=== PATIENT | female | born 1950 | race Caucasian/White ===

== ENCOUNTER 2022-01-14 11:41 | Outpatient (REF) | payer MEDICARE, BC, SELFPAY ==
[2022-01-14 12:37] LABS: Appearance Urine Cloudy (Clear); Bilirubin Urine Negative (Negative); Blood Urine Negative (Negative); Color Urine Yellow (Yellow); Glucose Urine Negative (Negative); Ketones Urine Negative (Negative); Leukocyte Esterase Urine Negative (Negative); Nitrite Urine Negative (Negative); Protein Urine Negative (Negative); Specific Gravity Urine >= 1.030 (1.000-1.030); Urobilinogen Urine 0.2 (0.2-1.0); pH Urine 5.5 (5.0-8.5)
[2022-01-14 13:12] LABS: RBC Urine 0-2 (0-2); Squamous Epithelial Cell Urine Few (None-Few); WBC Urine 0-2 (0-5)
[2022-01-14 13:13] LABS: Other Sediment Urine Many
== END 2022-01-14 11:42 | disposition home or self-care (01) ==
LOC: NPINS 11:41
PROVIDERS: PCP Internal Medicine
DX: N32.81 Overactive bladder (principal); R82.90 Unspecified abnormal findings in urine
CPT/HCPCS: 81003; 81015; 87086

== ENCOUNTER 2022-03-06 08:02 | Outpatient (CLI) | payer MEDICARE, BC, SELFPAY ==
[2022-03-06 10:43] LABS: Chloride* 104 mmol/L (96-114); Sodium* 134 mmol/L (135-149)
[2022-03-06 10:44] LABS: Potassium* 4.4 mmol/L (3.6-5.1)
[2022-03-06 10:46] LABS: Carbon Dioxide* 22 mmol/L (20-32); Estimated Glomerular Filt Rate 60 ml/min
[2022-03-06 10:47] LABS: Blood Urea Nitrogen* 18 mg/dL (7-30)
[2022-03-06 10:51] LABS: Glucose* 373 mg/dL (60-115)
== END 2022-03-06 08:03 | disposition home or self-care (01) ==
PROVIDERS: PCP Internal Medicine; Visit Provider Family Medicine
DX: U07.1 COVID-19 (principal)
CPT/HCPCS: 80048

== ENCOUNTER 2022-03-11 10:39 | Outpatient (CLI) | payer MEDICARE, BC, SELFPAY ==
--- NOTE | 2022-03-11 10:45 | CRLHL7_ITS ---
For Patients: As a result of the Century Cures Act, medical imaging exams and procedure reports are released immediately into your electronic medical record. You may view this report before your referring provider. If you have questions, please contact your health care provider. BILATERAL DIGITAL SCREENING MAMMOGRAM WITH COMPUTER-AIDED DETECTION AND TOMOSYNTHESIS CLINICAL HISTORY: Routine screening exam. COMPARISON: 03/11/2021, 02/23/2020, TECHNIQUE: Digital mammogram in CC and MLO projections including computer-aided detection (CAD) and tomosynthesis. BREAST COMPOSITION: There are scattered areas of fibroglandular density FINDINGS: RIGHT Breast: Focal asymmetric density is present within the upper RIGHT breast 8 cm from the nipple. LEFT Breast: No suspicious findings. IMPRESSION: RIGHT breast asymmetry/mass. RECOMMENDATIONS: Additional mammographic views of the RIGHT breast including 3D CC/MLO. RIGHT breast ultrasound may also be required. [facility] will contact the patient for follow-up. BI-RADS Category 0: Incomplete: Need Additional Imaging Evaluation and/or Prior Mammograms for Comparison A lay language report of this examination will be provided to the patient. Dictated by Elian Zimmer MD @ 03/11/2022 12:13:15 PM/maximilian BETANCOURT/Dictated by: Elian Zimmer MD @ 03/11/2022 12:13:00 PM (Electronically Signed)
== END 2022-03-11 10:40 | disposition home or self-care (01) ==
LOC: MAMMO 10:40
PROVIDERS: PCP Internal Medicine; Visit Provider Internal Medicine
DX: Z12.31 Encounter for screening mammogram for malignant neoplasm of breast (principal); N63.10 Unspecified lump in the right breast, unspecified quadrant
CPT/HCPCS: 77063; 77067

== ENCOUNTER 2022-03-19 10:38 | Outpatient (CLI) | payer MEDICARE, BC, SELFPAY ==
--- NOTE | 2022-03-19 10:45 | CRLHL7_ITS ---
For Patients: As a result of the Cures Act, medical imaging exams and procedure reports are released immediately into your electronic medical record. You may view this report before your referring provider. If you have questions, please contact your health care provider. DIGITAL DIAGNOSTIC RIGHT MAMMOGRAM USING TOMOSYNTHESIS AND COMPUTER-AIDED DETECTION RIGHT BREAST ULTRASOUND CLINICAL HISTORY: RIGHT breast mass/asymmetry. COMPARISON: 03/11/2022. TECHNIQUE: Digital RIGHT mammogram in two projections. Tomosynthesis and CAD utilized. Real-time ultrasound imaging of RIGHT breast with imaging documentation. Scanning was performed by both the technologist and the radiologist. BREAST COMPOSITION: There are areas of scattered fibroglandular density. FINDINGS: 3D CC and 3D MLO mammogram images submitted. Persistent subtle nodular density located within the upper RIGHT breast without architectural distortion. Targeted RIGHT breast ultrasound performed at 12 o`clock 7 cm from the nipple. In this location there is a subtle hypoechoic lesion at mid depth measuring 5 x 4 x 4 millimeters. IMPRESSION: Subtle indeterminate hypoechoic lesion RIGHT breast 12 o`clock 7 cm from the nipple measuring 5 millimeters. RECOMMENDATIONS: Ultrasound-guided core needle biopsy. Results and recommendations discussed with patient. BI-RADS Category 4: Suspicious A lay language report of this examination will be provided to the patient. Dictated by Elian Zimmer MD @ 03/19/2022 12:49:53 PM /Dictated by: Elian Zimmer MD @ 03/19/2022 12:49:00 PM (Electronically Signed)
--- NOTE | 2022-03-19 11:15 | CRLHL7_ITS ---
For Patients: As a result of the Cures Act, medical imaging exams and procedure reports are released immediately into your electronic medical record. You may view this report before your referring provider. If you have questions, please contact your health care provider. PLEASE SEE DIGITAL DIAGNOSTIC RIGHT MAMMOGRAM PERFORMED SAME DAY CRL:adán mccain/Dictated by: Elian Zimmer MD @ 03/19/2022 12:49:00 PM (Electronically Signed)
== END 2022-03-19 10:39 | disposition home or self-care (01) ==
LOC: MAMMO 10:40
PROVIDERS: PCP Internal Medicine; Visit Provider Internal Medicine
DX: N63.10 Unspecified lump in the right breast, unspecified quadrant (principal); R92.8 Other abnormal and inconclusive findings on diagnostic imaging of breast
CPT/HCPCS: 76642; 77065; G0279

== ENCOUNTER 2022-03-20 11:14 | Outpatient (CLI) | payer MEDICARE, BC, SELFPAY ==
[2022-03-20 11:13] LABS: Albumin* 3.9 g/dL (3.3-5.0); Chloride* 106 mmol/L (96-114); Sodium* 136 mmol/L (135-149)
[2022-03-20 11:14] LABS: Potassium* 4.7 mmol/L (3.6-5.1)
[2022-03-20 11:15] LABS: Cholesterol* 154 mg/dL (90-199)
[2022-03-20 11:16] LABS: Alanine Aminotransferase* 12 U/L (4-35); Alkaline Phosphatase* 74 U/L (40-150); Aspartate Amino Transferase* 17 U/L (12-35); Bilirubin Total* 0.9 mg/dL (0.1-1.5); Blood Urea Nitrogen* 20 mg/dL (7-30); Carbon Dioxide* 23 mmol/L (20-32); Creatinine* 1.1 mg/dL (0.5-1.5); Estimated Glomerular Filt Rate 54 ml/min; Glucose* 217 mg/dL (60-115); Total Protein* 6.4 g/dL (6.0-8.3); Triglycerides* 160 mg/dL (40-149)
[2022-03-20 11:17] LABS: Calcium* 9.7 mg/dL (8.4-10.6); HDL Cholesterol* 50 mg/dL (>=50); LDL Cholesterol Calculated 72 mg/dL (<100)
[2022-03-20 18:04] LABS: Microalbumin Creatinine Ratio 10 mg/g (0-30); Microalbumin Urine 4 mg/dL
== END 2022-03-20 11:15 | disposition home or self-care (01) ==
PROVIDERS: PCP Internal Medicine; Visit Provider Internal Medicine
DX: E11.9 Type 2 diabetes mellitus without complications (principal)
CPT/HCPCS: 80053; 80061; 82043; 82570

== ENCOUNTER 2022-03-24 10:09 | Outpatient (CLI) | payer MEDICARE, BC, SELFPAY ==
--- NOTE | 2022-03-24 10:15 | CRLHL7_ITS ---
For Patients: As a result of the Century Cures Act, medical imaging exams and procedure reports are released immediately into your electronic medical record. You may view this report before your referring provider. If you have questions, please contact your health care provider. ULTRASOUND-GUIDED BREAST BIOPSY AND POST-BIOPSY DIGITAL MAMMOGRAM FOR BIOPSY MARKER PLACEMENT CLINICAL HISTORY: RIGHT breast mass. COMPARISON STUDIES: 03/19/2022. TECHNIQUE: Real-time ultrasound with image documentation was used for targeting the breast lesion. Core biopsy specimens were obtained using an automated gun with an 18-gauge biopsy needle. Post-biopsy CC and ML digital mammograms were obtained to document position of the biopsy marker. CONSENT and TIME OUT: The procedure, risks, and alternatives were explained to the patient and a consent was signed. Merkel Protocol was followed including pre-procedure verification that relevant information/documentation was available, reviewed and properly matched to the patient; consent accurate and complete; and equipment and supplies available. Time Out was conducted just prior to starting procedure to verify the four required elements: patient identity, correct side/site marked (if applicable), procedure, relevant images/results properly labeled and displayed (if applicable). PROCEDURE: The patient was positioned supine on the ultrasound table. The breast was prepped with ChloraPrep. 5 cc of 1 percent lidocaine was injected for local anesthesia. Core samples were obtained. A sterile metal biopsy clip was placed percutaneously to baldev the lesion position within the breast. The specimens were placed in 10% formalin and sent to the pathology department. Pressure was held on the biopsy site until all bleeding subsided. The skin incision was closed with Steri-Strips. An ice pack was positioned over the biopsy site. Post-biopsy instructions were reviewed with the patient, and a written copy was given to her. LATERALITY: RIGHT breast. LESION: Hypoechoic solid nodule at mid depth measuring 4 millimeters at 12 o`clock 7 cm from the nipple. SUSPICION FOR MALIGNANCY: Medium. NUMBER OF SAMPLES: 5. BIOPSY CLIP SHAPE: Oval. PROXIMITY OF CLIP TO TARGET: Within or adjacent to the lesion. Small post biopsy hematoma developed. IMPRESSION: Ultrasound-guided breast biopsy. When the pathology report is available, an addendum to this report will be made. ACR not applicable Dictated by Elian Zimmer MD @ 03/24/2022 11:50:02 AM jj/Dictated by: Elian Zimmer MD @ 03/24/2022 11:50:00 AM ----ADDENDUM---- Pathology consistent with radial scar/complex sclerosing lesion. No evidence of atypia or malignancy. This is concordant. Routine annual BILATERAL screening mammography recommended. Dictated by: Elian Zimmer MD @03/26/2022 11:42:50 AM Signed by:?Elian Zimmer MD @03/26/2022 1:20:54 PM (Electronically Signed)
--- NOTE | 2022-03-24 11:00 | CRLHL7_ITS ---
For Patients: As a result of the Century Cures Act, medical imaging exams and procedure reports are released immediately into your electronic medical record. You may view this report before your referring provider. If you have questions, please contact your health care provider. PLEASE SEE ULTRASOUND-GUIDED RIGHT BREAST BIOPSY PERFORMED SAME DAY CRL:adán mccain/Dictated by: Elian Zimmer MD @ 03/24/2022 11:50:00 AM (Electronically Signed)
== END 2022-03-24 10:10 | disposition home or self-care (01) ==
LOC: US 10:10
PROVIDERS: PCP Internal Medicine; Visit Provider Internal Medicine
DX: N63.10 Unspecified lump in the right breast, unspecified quadrant (principal); R92.8 Other abnormal and inconclusive findings on diagnostic imaging of breast
CPT/HCPCS: 19083; 77065; 88305; A4648; A4649

== ENCOUNTER 2022-04-21 07:30 | Outpatient (RCR) | payer MEDICARE, BC, SELFPAY ==
--- NOTE | 2022-01-20 07:06 | PT.OPEX ---
PT [place] Outpatient Eval PT [facility] Outpatient Eval Start: 01/19/22 10:51 Freq: Status: Active Protocol: Document 01/19/22 10:51 ARR (Rec: 01/19/22 11:42 ARR [id number]) E-signed By Zuly Hugo DPT Physical Therapy Outpatient Evaluation Insurance Information Recert Due Date 04/19/22 Insurance Name Medicare B Medical Diagnosis M25.551 right hip pain Treating Diagnosis M25.551 right hip pain M62.551 right thigh weakness R26.2 difficulty walking Referring MD Flor Solorzano MD ([facility]) Subjective Subjective Comes to PT with R hip pain since Summer 2021. Walking too far it increases, distance to [address] increases pain and most stop and rest. Standing too long can increase pain, can stand no longer than 20 min before sitting and resting . Pain can increase to 8/10. Described as an ache. -Decreases in pain: sometimes movement helps. Sitting down. -Location of pain R posterior- lateral hip just behind greater trochanter. PMHx: ovarian CA 1982 with hysterectomy, BPPV, DM type 2, TKA bilateral, gallbladder Objective Other/Pertinent Objective Posture: level IC, inc'd foot pronation bilat, inc'd foot/ hip ER bilat, inc'd TS kyhposis Palpation: TTP lateral hip over greater trochanter, and just posterior to greater trochanter, and proximal ITB on R. SLS (30 sec): Unable on the R with inc'd pelvic drop and genu valgus. Able to maintain 5 sec on L with same deviations Gait: mild antalgic gait with decreased weight bearing on R LE RANGE OF MOTION: Lumbar ROM: -Flx: -Ext: -R Rot: -L Rot: -R Sidebend: -L Sidebend: LE ROM (R/L): -Hip ER90: 90 L / 80 R -Hip IR90: 40 L/R -Hip flex: limited on R STRENGTH: LE Strength (R/L) -GLut medius: 2+ on R SPECIAL TESTS: LE Flexibility (R/L) -Hamstring: + bilat -Piriformis: neg bilat -Prone knee bend: tested in sidelying pos on R - Raffy?s Test + on R Hip (R/L): -SHILA: neg bilat -Hip Scour: neg bilat -FADIR: neg bilat -Jace?s Test: neg bilat Assessment Assessment/Impression Pt is a 71 y/o female who presents with concerns of right hip pain. Signs and symptoms likely indicating / consistent with trochanteric bursitis with reproduction of pain with palpation of greater trochanter and just posterior to greater trochanter over trochanteric bursa. Patient also has notable objective findings including glut weakness, inability to complete SLS on right side due to hip weakness causing genu valgus and further hip strain, and ITB tightness also likely contributing to the problem. Patient is a good candidate for skilled therapy to target deficits described above. Skilled PT intervention is necessary for use of therapeutic exercise manual therapy, neuromuscular re- education, gait training, and therapeutic activity. Functional impairments include difficulty with: walking and standing. See appropriate sections of PT eval for complete list of goals and POC . D/C plan and criteria is for pt to achieve the goals as listed below or until max rehab potential is met. Pt was agreeable with plan of care and goals established. Plan of Care Physical Therapy Goals STG (within 6 visits) 1) Pt will initiate HEP without increased pain/ symptoms 2) Pt will demonstrate ability to isometrically activate TA and gluts with minimal compensations in order to improve lumbopelvic stability 3) Pt will demonstrate ability to maintain SLS > 5 sec on right side to improve pelvic alignment LTG (within 12 visits) 1) Pt will be indep with HEP for long-term management of pain/symptoms 2) Pt will report at least 70% improvement in pain/symptoms since start of PT for return to PLOF 3) Pt will report ability to walk to [address] with pain not exceeding 3/10 for improved community ambulation/mobility 4) Pt will demonstrate ability to maintain SLS > 15 sec with moderate pelvic drop and no pain to improve LE alignment to hip knee strain during ambulation on uneven terrain 5) Pt will be able to activate gluts during dynamic LE movements without flare of pain for improved dynamic pelvic stability Treatment Plan/Direct Interventions Electrical Stimulation,Gait Training,Joint Mobilization, Manual Therapy,Neuromuscular Re-ed,Self-Care/Home Management,Therapeutic Activities,Therapeutic Exercises Patient Will Be Discharged From Therapy Skills [facility],Independent w/ HEP Evaluation Billing Untimed Code Treatment Minutes 20 Complexity Moderate Certification Information Initial Certification Date 01/19/22 Ending Certification Date 04/19/22 Provider Signature Shows Agreement With POC & Medical Necessity Physician Signature & Date Requested Please Sign/Date Here Physician Comment/Change : Physician NPI Number #
--- NOTE | 2022-04-14 10:45 | PT.OPDNX ---
PT [place] Outpatient Daily Note PT [facility] Outpatient Daily Note Start: 01/19/22 11:42 Freq: Status: Active Protocol: Document 04/14/22 08:31 ARR (Rec: 04/14/22 09:09 ARR [id number]) E-signed By Zuly Hugo DPT PT OP Daily Progress Note Visit Information Note Type Daily Note Visit Number 8 Insurance Information Recert Due Date 04/19/22 Insurance Name Medicare B Insurance Information/Comments POC 01/19/23-04/14/22 POC 04/15/22 - 06/13/22 Medical Diagnosis M25.551 right hip pain Treating Diagnosis M25.551 right hip pain M62.551 right thigh weakness R26.2 difficulty walking Referring MD Flor Solorzano MD ([facility]) Subjective Subjective -Symptoms seem to be getting better. -Back didn't get sore after last session -Returned to [facility] Home Exercise Home Exercise Comments Access Code: [email or web address] URL: [email or web address] Date: 02/16/2022 Prepared by: Zuly Hugo Program Notes - Rolling pin every other day 3-5 min Exercises Supine Piriformis Stretch with Foot on Ground - 2 x daily - 5-7 x weekly - 2-3 reps - 20- 30 sec hold Supine Hip Internal and External Rotation - 2 x daily - 5-7 x weekly - 6-8 reps Supine Piriformis Stretch - 2 x daily - 5-7 x weekly - 3 sets - 2-3 reps - 20-30 sec hold Hooklying Clamshell with Resistance - 1 x daily - 4-5 x weekly - 2 sets - 12-15 reps Supine Gluteal Sets - 1 x daily - 4-5 x weekly - 20 reps - 5 sec hold Objective Other/Pertinent Objective Posture: level IC, inc'd foot pronation bilat, inc'd foot/ hip ER bilat, inc'd TS kyhposis Palpation: TTP lateral hip over greater trochanter, and just posterior to greater trochanter, and proximal ITB on R. SLS (30 sec): Unable on the R with inc'd pelvic drop and genu valgus. Able to maintain 5 sec on L with same deviations Gait: mild antalgic gait with decreased weight bearing on R LE RANGE OF MOTION: Lumbar ROM: -Flx: -Ext: -R Rot: -L Rot: -R Sidebend: -L Sidebend: LE ROM (R/L): -Hip ER90: 90 L / 80 R -Hip IR90: 40 L/R -Hip flex: limited on R STRENGTH: LE Strength (R/L) -GLut medius: 2+ on R SPECIAL TESTS: LE Flexibility (R/L) -Hamstring: + bilat -Piriformis: neg bilat -Prone knee bend: tested in sidelying pos on R - Raffy?s Test + on R Hip (R/L): -SHILA: neg bilat -Hip Scour: neg bilat -FADIR: neg bilat -Mccormick?s Test: neg bilat Patient Instructed in Risks/Benefits Yes Therapeutic Exercise Therapeutic Exercise Minutes (minutes) 13 Therapeutic Exercise: To Restore Therapeutic Exercise: Functional Status Indicated for improvement in strengthening and mobility. -Handouts with written instructions and photographs of exercises were issued to the patient for exercises to be included in HEP. Answered patient questions regarding POC, and mobility/stretches to perform if pain occurs -Subjective gathering as above . -Prone Hip ext 2x 6 reps ea side -Prone knees apart heel press 12 x 5 holds -Prone hip ext w/knee bent 90* x 6 reps R LE -Bridges 10 x 2-3 holds Manual Therapy Techniques Manual Therapy Minutes (minutes) 15 Manual Therapy Techniques MT: indicated for improving joint mobility, reducing tissue irritability, and improving range of motion. Prone: -CPA L4-5 for 4 x 30 sec G3 -KEVIN CPA L4-5 and S1 for 2 x 30 sec G3 Treatment Minutes Timed Code Treatment Minutes 28 Total Treatment Time 28 Billing Units Manual Therapy Units 1 Therapeutic Exercise Units 1 Assessment/Impression Assessment/Impression Pt had been seen for R hip pain, R thigh weakness, and difficulty walking for 8visits from 01/19/22 to 04/14/2022 during this episode of physical therapy. Focus of therapy on hip ROM, glut strengthening, pain management , and spinal ROM. Interventions including therapeutic exercise, manual therapy, neuromuscular re- education. Pt has been making slow but steady progress during this plan of care. Having hip injection significantly reduced pain and also recent approach for targeting lumbar spine segmental mobility. Pt at this time has not met all short/half-way goals and continues to require cues for exercises in HEP. Would benefit from extension of current plan of care with goals as indicated below. Continued focus of therapy on progressing glut/core strength and improving lumbar spine ROM. 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 2) Pt will report at least 70% improvement in pain/symptoms since start of PT for return to PLOF 3) Pt will report ability to walk to [address] with pain not exceeding 3/10 for improved community ambulation/mobility 4) Pt will demonstrate ability to maintain SLS > 15 sec with moderate pelvic drop and no pain to improve LE alignment to hip knee strain during ambulation on uneven terrain 5) Pt will be able to activate gluts during dynamic LE movements without flare of pain for improved dynamic pelvic stability Daily Plan of Care Continue per POC Daily Plan of Care Comments -Glut and core strengthening ( hip ext, GS, bridges, hip adduction, clam). Standing strengthening - squats, heel raises, lateral stepping. -Changes after LS intervention vs no difference Recertification Information Initial Certification Date 01/19/22 Recertification Start Date 04/14/22 Recertification Due Date 06/13/22 Reasons to Continue Skilled Therapy Pt had been seen for R hip pain, R thigh weakness, and difficulty walking for 8visits from 01/19/22 to 04/14/2022 during this episode of physical therapy. Focus of therapy on hip ROM, glut strengthening, pain management , and spinal ROM. Interventions including therapeutic exercise, manual therapy, neuromuscular re- education. Pt has been making slow but steady progress during this plan of care. Having hip injection significantly reduced pain and also recent approach for targeting lumbar spine segmental mobility. 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 Would benefit from extension of current plan of care with goals as indicated below. Continued focus of therapy on progressing glut/core strength and improving lumbar spine ROM. Skilled PT continues to be indicated for pain mgmt, progression of mobility and strength for return to PLOF including walking and standing Rehabilitation Potential Good Continued Plan of Care and Interventions Continue per current plan of care at a frequency of 1x/wk x 4 visits within 60 days Provider Signature Shows Agreement With POC & Medical Necessity
== END 2022-05-25 12:15 | disposition home or self-care (01) ==
PROVIDERS: PCP Internal Medicine; Visit Provider Internal Medicine
DX: M25.551 Pain in right hip (principal); Z51.89 Encounter for other specified aftercare
CPT/HCPCS: 97110; 97140; 97162

== ENCOUNTER 2022-11-06 11:15 | Outpatient (CLI) | payer MEDICARE, BC, SELFPAY ==
--- NOTE | 2022-11-06 12:34 | W.ANESCHARGE ---
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
== END 2022-11-06 11:16 | disposition home or self-care (01) ==
LOC: OP CLINIC 11:16
PROVIDERS: PCP Internal Medicine; Visit Provider Internal Medicine
DX: Z12.11 Encounter for screening for malignant neoplasm of colon (principal); K64.4 Residual hemorrhoidal skin tags; K57.30 Diverticulosis of large intestine without perforation or abscess without bleeding; Z86.010 Personal history of colon polyps
CPT/HCPCS: 00812; 45378; 99100; J2704

== ENCOUNTER 2023-03-24 14:27 | Outpatient (CLI) | payer MEDICARE, BC, SELFPAY ==
--- OUTSIDE RECORDS SUMMARY | 2023-03-24 14:30 | XMS_ITS | Data Portability ---
Author Name Unknown Address [address] [place] [address] Phone [phone] Organization [facility], [facility] Address [address] [place] [address] Care Team Providers Care Wharf Operator Name Role Phone NUNO BROCK Primary Care Provider Assessment No assessment recorded. Plan of Treatment Reminders Order Date Submit Date Provider Last Modified By Organization Details Last Modified Time Details Appointments None recorded. Lab urinalysi s, dipstick 2022 023 [email or web address] [facility], [address], [place], [address], 3 13:29:56 urinalysi s, dipstick 2022 023 [email or web address] [facility], [address], [place], [address], 3 12:51:46 culture, urine 2022 023 [facility], [address], [address], [place], [address], 3 12:39:36 urinalysi s, dipstick 2021 022 [email or web address] [facility], [address], [place], [address], 2 13:58:26 urinalysi s, dipstick 2021 022 [email or web address] [facility], [address], [place], [address], 14:45:40 Referral None recorded. Procedures None recorded. Surgeries None recorded. Imaging None recorded. Medication Orders Botox 100 unit injection 2022 023 [email or web address] [id number], [address] [place] [address], [address], 13:29:05 Botox 100 unit injection 2021 022 [email or web address] [id number], [address] [place] [address], [address], 13:52:02 Patient TargetsNo targets recorded. Patient Instructions Encounter Date Encounter Id Patient Instructions Last Modified By Organization Details Last Modified Time 01/28/2022 [id number] Follow up in a month post botox [email or web address] Not available 01/28/2022 14:06:12 Reason for Referral None Reported. Results Created Date Observation Date Name Description Value Unit Range Abnormal Flag LastModifiedBy Organization Detail LastModifiedTime 12/24/1912/23/2021 urina lysis , dipst ick Color-Status Yellow Not Available [facility] [address], [place], [address], 12/23/2021 14:44:58 12/24/1912/23/2021 urina lysis , dipst ick Clarity-Stat us Clear Not Available [facility] [address], [place], [address], 12/23/2021 14:44:58 12/24/1912/23/2021 urina lysis , dipst ick Glucose-Stat us 500 Not Available [facility] [address], [place], [address], 12/23/2021 14:44:58 12/24/1912/23/2021 urina lysis , dipst ick Bilirubin-St atus Negati ve Not Available [facility] [address], [place], [address], 12/23/2021 14:44:58 12/24/19 22 12/23/2021 urina lysis , dipst ick Ketones-Stat us Negati ve Not Available [facility] [address], [place], [address], 12/23/2021 14:44:58 12/24/1912/23/2021 urina lysis , dipst ick Sp Amigo-Stat us 1.020 Not Available [facility] [address], [place], [address], 12/23/2021 14:44:58 12/24/1912/23/2021 urina lysis , dipst ick pH-Status 5.5 Not Available [facility] [address], [place], [address], 12/23/2021 14:44:58 12/24/1912/23/2021 urina lysis , dipst ick Urobilinogen -Status 0.2 Not Available [facility] [address], [place], [address], 12/23/2021 14:44:58 12/24/1912/23/2021 urina lysis , dipst ick Nitrates-Sta tus negati ve Not Available [facility] [address], [place], [address], 12/23/2021 14:44:58 12/24/1912/23/2021 urina lysis , dipst ick Blood-Status Negati ve Not Available [facility] [address], [place], [address], 12/23/2021 14:44:58 12/24/19 22 12/23/2021 urina lysis , dipst ick Leuko-Status Negati ve Not Available [facility] [address], [place], [address], 12/23/2021 14:44:58 12/24/19 22 12/23/2021 urina lysis , dipst ick Specimen Type Voided Not Available [facility] [address], [place], [address], 12/23/2021 14:44:58 12/24/1912/23/2021 urina lysis , dipst ick Performed by Renee De Leon RN Not Available [facility] [address], [place], [address], 12/23/2021 14:44:58 12/24/19 22 12/23/2021 urina lysis , dipst ick Total Urine Volume 20cc Not Available [facility] [address], [place], [address], 12/23/2021 14:44:58 01/21/20 22 01/20/2022 urina lysis , dipst ick Color-Status Yellow Not Available [facility] [address], [place], [address], 01/20/2022 13:57:26 01/21/20 22 01/20/2022 urina lysis , dipst ick Clarity-Stat us Clear Not Available [facility] [address], [place], [address], 01/20/2022 13:57:26 01/21/20 22 01/20/2022 urina lysis , dipst ick Glucose-Stat us 500 Not Available [facility] [address], [place], [address], 01/20/2022 13:57:26 01/21/20 22 01/20/2022 urina lysis , dipst ick Bilirubin-St atus Negati ve Not Available [facility] [address], [place], [address], 01/20/2022 13:57:26 01/21/20 22 01/20/2022 urina lysis , dipst ick Ketones-Stat us 5 Not Available [facility] [address], [place], [address], 01/20/2022 13:57:26 01/21/20 22 01/20/2022 urina lysis , dipst ick Sp Amigo-Stat us >=1.03 0 Not Available [facility] [address], [place], [address], 01/20/2022 13:57:26 01/21/20 22 01/20/2022 urina lysis , dipst ick pH-Status 5.5 Not Available [facility] [address], [place], [address], 01/20/2022 13:57:26 01/21/20 22 01/20/2022 urina lysis , dipst ick Urobilinogen -Status 0.2 Not Available [facility] [address], [place], [address], 01/20/2022 13:57:26 01/21/20 22 01/20/2022 urina lysis , dipst ick Nitrates-Sta tus negati ve Not Available [facility] [address], [place], [address], 01/20/2022 13:57:26 01/21/20 22 01/20/2022 urina lysis , dipst ick Blood-Status Negati ve Not Available [facility] [address], [place], [address], 01/20/2022 13:57:26 01/21/20 22 01/20/2022 urina lysis , dipst ick Leuko-Status Negati ve Not Available [facility] [address], [place], [address], 01/20/2022 13:57:26 01/21/20 22 01/20/2022 urina lysis , dipst ick Specimen Type Cathet erized Not Available [facility] [address], [place], [address], 01/20/2022 13:57:26 01/21/20 22 01/20/2022 urina lysis , dipst ick Performed by Renee De Leon RN Not Available [facility] [address], [place], [address], 01/20/2022 13:57:26 01/21/20 22 01/20/2022 urina lysis , dipst ick Total Urine Volume 20cc Not Available [facility] [address], [place], [address], 01/20/2022 13:57:26 12/02/19 23 12/01/2022 URINE CULTU RE final report microb iology result s Not Available [facility] [address], [place], [address], 12/03/2022 12:39:36 12/02/1912/01/2022 urina lysis , dipst ick Nitrates-Sta tus negati ve Not Available [facility] [address], [place], [address], 12/01/2022 12:49:52 12/02/19 23 12/01/2022 urina lysis , dipst ick Blood-Status Negati ve Not Available [facility] [address], [place], [address], 12/01/2022 12:49:52 12/02/1912/01/2022 urina lysis , dipst ick Leuko-Status Negati ve Not Available [facility] [address], [place], [address], 12/01/2022 12:49:52 12/02/19 23 12/01/2022 urina lysis , dipst ick Specimen Type Voided Not Available [facility] [address], [place], [address], 12/01/2022 12:49:52 12/09/1912/08/2022 urina lysis , dipst ick Color-Status Yellow Not Available [facility] [address], [place], [address], 12/08/2022 13:29:13 12/09/19 23 12/08/2022 urina lysis , dipst ick Clarity-Stat us Clear Not Available [facility] [address], [place], [address], 12/08/2022 13:29:13 12/09/19 23 12/08/2022 urina lysis , dipst ick Glucose-Stat us 500 Not Available [facility] [address], [place], [address], 12/08/2022 13:29:13 12/09/19 23 12/08/2022 urina lysis , dipst ick Bilirubin-St atus Negati ve Not Available [facility] [address], [place], [address], 12/08/2022 13:29:13 12/09/19 23 12/08/2022 urina lysis , dipst ick Ketones-Stat us 5 Not Available [facility] [address], [place], [address], 12/08/2022 13:29:13 12/09/19 23 12/08/2022 urina lysis , dipst ick Sp Amigo-Stat us >=1.03 0 Not Available [facility] [address], [place], [address], 12/08/2022 13:29:13 12/09/19 23 12/08/2022 urina lysis , dipst ick Protein-Stat us >=9.0 Not Available [facility] [address], [place], [address], 12/08/2022 13:29:13 12/09/19 23 12/08/2022 urina lysis , dipst ick Nitrates-Sta tus negati ve Not Available [facility] [address], [place], [address], 12/08/2022 13:29:13 12/09/19 23 12/08/2022 urina lysis , dipst ick Blood-Status Negati ve Not Available [facility] [address], [place], [address], 12/08/2022 13:29:13 12/09/19 23 12/08/2022 urina lysis , dipst ick Leuko-Status Negati ve Not Available [facility] [address], [place], [address], 12/08/2022 13:29:13 12/09/19 23 12/08/2022 urina lysis , dipst ick Specimen Type Voided Not Available [facility] [address], [place], [address], 12/08/2022 13:29:13 12/25/19 22 12/23/2021 bladd er scan (PROC ) No observ ation record ed. BARCODE Not Available 12/24/2021 16:45:09 12/26/1912/23/2021 bladd er scan (PROC ) No observ ation record ed. BARCODE Not Available 12/25/2021 09:23:29 01/29/20 22 01/28/2022 bladd er scan (PROC ) No observ ation record ed. [email or web address] Not Available 14:49:34 03/23/19 23 03/23/2022 bladd er scan (PROC ) No observ ation record ed. BARCODE Not Available 03/23/2022 17:29:31 Result Notes None recorded. Problems Name Status Onset Date Resolution Date Notes Provider Name and Address Organization Details Recorded Time Overactive bladder Active 12/24/19 [facility] 12/23/2021 14:43:19 Problem Notes None recorded. Procedures Surgical History Date Name Laterality Status Provider Name and Address Organization Details Recorded Time 023 Cystoscopy with Botox Injections completed Radha To MD [address] [place] [address],[address], [place], [address], [facility] 12/08/2022 13:46:35 023 Urine Culture completed Jennifer dietz [facility] 12/01/2022 12:49:45 023 [facility] 12:49:40 023 Bladder Scan completed Zamzam dietz, [facility] 03/23/2022 14:38:07 022 Bladder Scan completed Meghan dietz, [facility] 01/28/2022 14:05:34 022 Cystoscopy with Botox Injections completed Radha To MD [address] [place] [address],[address], [place], [address], [facility] 01/20/2022 14:20:11 022 CystoscopyFemale completed Radha To MD [address] [place] [address],[address], [address], [facility] 12/23/2021 15:10:01 022 Bl[facility] 12/23/2021 14:44:55 biopsy of ovary completed Renee Rincon aguilar dietz [facility] 12/23/2021 14:46:29 Orthopedic Surgery completed Renee De Leon mirela [facility] 12/23/2021 14:46:36 Imaging Results Imaging Date Name Status LastModified by Organiz ation Details LastModified Time 12/23/2021 bladder scan (PROC) completed BARCODE Information not available 12/24/2021 16:45:09 12/23/2021 bladder scan (PROC) completed BARCODE Information not available 12/25/2021 09:23:29 01/28/2022 bladder scan (PROC) completed [email or web address] Information not available 03/23/2022 14:49:34 03/23/2022 bladder scan (PROC) completed BARCODE Information not available 03/23/2022 17:29:31 Procedure Notes None recorded. Medical Equipment None Reported. Allergies No known drug allergies Medications Name Sig Start Date Stop Date Status Note LastModified by Organization Details LastModified Time losartan 50 mg tablet active Not Available Not Available No t Available celecoxib 200 mg capsule active Not Available Not Available Not Available latanoprost 0.005 % eye drops active Not Available Not Available Not Available ketoconazol e 2 % shampoo WASH AFFECTED AREA ON SCALP AND FACE 2-3X WEEKLY LATHER AND LET SIT FOR SEVERAL MINUTES BEFORE RINSING active Not Available Not Available No t Available oxybutynin chloride ER 10 mg tablet,exte nded release 24 hr TAKE 1 TABLET BY MOUTH DAILY FOR 14 DAYS. 03/23 completed Not Available Not Available Not Available glipizide 10 mg tablet active Not Available Not Available Not Available venlafaxine ER 150 mg capsule,ext ended release 24 hr active Not Available Not Available Not Available amlodipine 5 mg tablet active Not Available Not Available Not Available spironolact one 25 mg tablet active Not Available Not Available Not Available pravastatin 10 mg tablet active Not Available Not Available Not Available metformin 1,000 mg tablet TAKE 1 TABLET BY MOUTH 2 TIMES PER DAY WITH MEALS. active Not Available Not Available No t Available esomeprazol e magnesium 40 mg capsule,del ayed release active Not Available Not Available Not Available clobetasol 0.05 % scalp solution APPLY THIN LAYER TO AFFECTED AREA ON SCALP 1-2X DAILY FOR UP TO 2 WEEKS. TAKE 2 WEEK BREAK. REPEAT NEEDED FOR FLARES. active Not Available Not Available No t Available glipizide 5 mg tablet 12/23 completed Not Available Not Available Not Available Botox 100 unit injection Take 100 units by injection route. 2022 active Not Available Not Available Not Avai lable desmopressi n 0.1 mg tablet 12/23 completed Not Available Not Available Not Available Nexium active Not Available Not Availa ble Not Available GaviLyte-G 236 gram-22.74 gram-6.74 gram-5.86 gram oral solution active Not Available Not Available Not Available Contour Next Test Strips PATIENT TO TEST ONE TIME DAILY active Not Available Not Available No t Available Paxlovid 300 mg (150 mg x 2)-100 mg tablets in a dose pack TAKE TWO 150 MG TABLETS OF NIRMATREL VIR WITH ONE 100 MG TABLET OF RITONAVIR TWICE DAILY FOR 5 DAYS active Not Available Not Available No t Available Vitals Date Recorded Body height Body mass index (BMI) Body weight Provider Name and Address Organization Details Last Updated DateTime 03/23/2022 176.53 cm 32.2 kg/m2 540645.[address] [facility] 03/23/2022 14:38:28 Social History Question Answer Notes LastModified by Organizat ion Details LastModified Time Tobacco Smoking Status Never Smoker Renee De Leon mirela [facility] 12/23/2021 14:46:54 What Is Your Level Of Alcohol Consumption? Occasional [email or web address] Information not available 12/23/2021 What Is Your Level Of Caffeine Consumption? Moderate [email or web address] Information not available 12/23/2021 What Was The Date Of Your Most Recent Tobacco Screening? 12/08/2022 [email or web address] Information not available 12/08/2022 Have You Ever Been Counseled For Unhealthy Alcohol Use? No [email or web address] Information not available 12/08/2022 Do You Use Any Illicit Or Recreational Drugs? No Information not available 03/23/2022 Has Tobacco Cessation Counseling Been Provided? No Information not available 03/23/2022 Do You Or Have You Ever Used Any Other Forms Of Tobacco Or Nicotine? No [email or web address] Information not available 12/23/2021 How Many Days In The Past Year Have You Consumed 4 Or More Drinks? 0 [email or web address] Information no t available 12/08/2022 Sex: Female Functional Status None recorded. Mental Status None recorded. Family History Relationship Description Onset Age of this Age Resolved Age Notes Maternal Aunt Family history of br east cancer Medical History Condition Response Other N High Blood Pressure Y Kidney Stones Y Lung Disease N Depression N GERD/Acid Reflux N Diabetes Y Sexually Transmitted Infection N Bleeding Disorder N Cancer Y High Cholesterol N Heart Disease N Gynecological HistoryNo gynecological history recorded. Obstetrics History GPAL:G 0 P 0 0 0 0 Immunizations Vaccine Type Date Status Provider Name and Address Organization Details Recorded Time zoster recombinant 12/02/2017 completed Monica Al lar null, [facility] 03/01/2023 16:17:32 zoster recombinant 02/22/2018 completed Moniac Al lar null, [facility] 03/01/2023 16:17:32 COVID-19, mRNA, LNP-S, PF, 100 mcg/0.5mL dose or 50 mcg/0.25mL dose 04/07/2020 completed Monica Allar null, [facility] 03/01/2023 16:17:32 COVID-19, mRNA, LNP-S, PF, 100 mcg/0.5mL dose or 50 mcg/0.25mL dose 05/05/2020 completed Monica Allar null, [facility] 03/01/2023 16:17:32 COVID-19, mRNA, LNP-S, PF, 100 mcg/0.5mL dose or 50 mcg/0.25mL dose 06/18/2021 completed Monica Allar null, [facility] 03/01/2023 16:17:32 COVID-19, mRNA, LNP-S, PF, 100 mcg/0.5mL dose or 50 mcg/0.25mL dose 01/10/2021 completed Monica Allar null, [facility] 03/01/2023 16:17:32 COVID-19, mRNA, LNP-S, bivalent, PF, 50 mcg/0.5 mL or 25mcg/0.25 mL dose 12/12/2021 completed Monica Allar null, [facility] 03/01/2023 16:17:32 pneumococcal polysaccharide PPV23 10/15/2010 completed Monica Allar null, [facility] 03/01/2023 16:17:32 pneumococcal polysaccharide PPV23 10/30/2019 completed Monica Allar null, [facility] 03/01/2023 16:17:32 Tdap 11/15/2007 completed Monica Allar null, [facility] 03/01/2023 16:17:32 Tdap 01/20/2012 completed Monica Allar null, [facility] 03/01/2023 16:17:32 Pneumococcal conjugate PCV 13 03/20/2016 completed Monica Allar null, [facility] 03/01/2023 16:17:32 zoster live 05/05/2011 completed Monica Allar null, [facility] 03/01/2023 16:17:32 Influenza, high dose seasonal 11/21/2018 completed Monica Allar null, [facility] 03/01/2023 16:17:32 Influenza, high dose seasonal 12/02/2017 completed Monica Allar null, [facility] 03/01/2023 16:17:32 Influenza, high dose seasonal 12/22/2015 completed Monica Allar null, [facility] 03/01/2023 16:17:32 Influenza, high dose seasonal 12/24/2016 completed Monica Allar null, [facility] 03/01/2023 16:17:32 Influenza, seasonal, injectable 12/07/2012 completed Monica Allar null, [facility] 03/01/2023 16:17:32 Influenza, seasonal, injectable 12/10/2008 completed Monica Allar null, [facility] 03/01/2023 16:17:32 Influenza, seasonal, injectable 12/14/2011 completed Monica Allar null, [facility] 03/01/2023 16:17:32 Influenza, seasonal, injectable 12/17/2010 completed Monica Allar null, [facility] 03/01/2023 16:17:32 Influenza, seasonal, injectable 12/27/2009 completed Monica Allar null, [facility] 03/01/2023 16:17:32 Influenza, seasonal, injectable 01/15/2006 completed Monica Allar null, [facility] 03/01/2023 16:17:32 Influenza, seasonal, injectable 02/14/2004 completed Monica Allar null, [facility] 03/01/2023 16:17:32 Influenza, seasonal, injectable, preservative free 01/03/2014 completed Monica Allar null, [facility] 03/01/2023 16:17:32 Novel [id number] 03/11/2009 completed Monica Allar null, [facility] 03/01/2023 16:17:32 Td (adult), 2 Lf tetanus toxoid, preservative free, adsorbed 03/25/2017 completed Monica Allar null, [facility] 03/01/2023 16:17:32 influenza, injectable, quadrivalent, preservative free 10/30/2019 completed Monica Allar null, [facility] 03/01/2023 16:17:32 influenza, injectable, quadrivalent, preservative free 11/28/2020 completed Monica Allar null, [facility] 03/01/2023 16:17:32 influenza, high-dose, quadrivalent 12/25/2021 completed Monica Allar null, [facility] 03/01/2023 16:17:39 Past Encounters Encounter ID Performer Location Encounter Start Date Encounter Closed Date Diagnosis/Indication [id number] MD [facility] [address] [place] [address] 12/23/2021 14:22:33 12/26/2021 09:26:49 Overactive bladder [id number] Radha To MD [facility] [address] [place] [address] 01/20/2022 12:51:39 01/23/2022 08:07:39 Overactive bladder [id number] Meghan Beltran [facility] [address] [place] [address] 01/28/2022 13:55:37 01/30/2022 11:17:16 Overactive bladder [id number] LAMBERTO VIEIRA [facility] [address] [place] [address] 03/23/2022 14:20:11 03/27/2022 10:27:15 Overactive bladder [id number] Jennifer Catherine [facility] [address] [place] [address] 12/01/2022 11:17:25 12/03/2022 16:39:23 Overactive bladder [id number] MD [facility] [address] [place] [address] 12/08/2022 12:49:18 12/11/2022 15:43:17 Overactive bladder Health Concerns Section Related Observation LastModified by Organization Detai ls LastModified Time None Recorded Concern Status LastModified by Organization Details LastModified Time None Recorded Advance Directives Directive None Recorded Payers Encounter Date Sequence Insurance Name Policy Number Policy Cuenca Covered Member ID Cuenca Member ID Guarantor Name 12/08/2022 1 [place] [id number] Marta K Manzey [id number] Marta K Manzey 12/01/2022 1 [place] [id number] Marta K Manzey [id number] Marta K Manzey 03/23/2022 1 [place] [id number] Marta K Manzey [id number] Marta K Manzey 01/28/2022 1 [place] [id number] Marta K Manzey [id number] Marta K Manzey 01/20/2022 1 [place] [employer] [id number] Marta K Manzey [id number] Marta K Manzey Notes Date Note Type Note Provider Name and Address Organization Details Recorded Time 12/23/2021 text/html HPI Notes: OAB n ew patient for urgency and frequency mainly at night ( times 2); occasional night time incontinence. Tried oxybutynin, myrbetriq, trospium, and detrol- no relief. Rare stress incotinence PMHx includes ovarian cancer, DBM #2 UDS report done 10/31/21 per reports is consistent with spastic bladder; good bladder emptying. HTC710 mL UA Glucose Cysto is normal Radha To MD [address] [place] [address],[address], [place], [address], [facility] 12/23/2021 15:10:37 01/20/2022 text/html HPI Notes: 71 YO F for OAB here for initial botox injections OAB new patient for urgency and frequency mainly at night ( times 2); occasional night time incontinence. Tried oxybutynin, myrbetriq, trospium, and detrol- no relief. Rare stress incotinence PMHx includes ovarian cancer, DBM #2 UDS report done 10/31/21 per reports is consistent with spastic bladder; good bladder emptying. Radha To MD [address] [place] [address],[address], [address], [facility] 01/20/2022 14:30:46 03/23/2022 text/html HPI Notes: 71yo female, pt of Dr. To- here today for f/u after bladder botox on 01/20/22. Reports 90+% improvement in sx. No leakage or nocturia. No recent UTIs. Baseline sx of urinary urgency/frequency, worse at night with nocturia x2 and occasional night time incontinence. Tried oxybutynin, myrbetriq, trospium, and detrol- no relief. Rare stress incontinence PMHx includes ovarian cancer, DBM #2 UDS report done 10/31/21 per reports is consistent with spastic bladder; good bladder emptying. PVR 63cc LAMBERTO VIEIRA [address] [facility],[address], [place], [address], [facility] 03/23/2022 14:49:50 12/01/2022 text/html HPI Notes: Pt is here for UA/UC prior to Botox Jennifer dietz, [facility] 12/08/2022 12:26:05 12/08/2022 text/html HPI Notes: 71yo female, pt of Dr. To- here for repeat botox injections 100U botox on 01/20/22. Reported 90+% improvement in sx. No leakage or nocturia. Tried oxybutynin, myrbetriq, trospium, and detrol- no relief. Rare stress incontinence PMHx includes ovarian cancer, DBM #2 UDS report done 10/31/21 per reports is consistent with spastic bladder; good bladder emptying. Radha To MD [address] [facility],[address], [place], [address], [facility] 12/08/2022 13:47:00 OBGyn Episode No OBEpisode recorded.
--- OUTSIDE RECORDS SUMMARY | 2023-03-24 14:31 | XMS_ITS | Clinical Summary ---
Author Name Unknown Organization Pending sale to [facility] Address [address] [place] [address] Care Team Providers Care Staff Sonographer Name Role Phone Flor Solorzano MD Primary Care Provider [phone] Source Comments You are receiving this document as you are listed as the primary care provider,follow-up provider, or the patient has been referred to you for consultation.This is in compliance with the Medicare and[facility] E[facility] Incentive [facility],which states Providers who transition their patient to another setting of careor provider of care or refers their patient to another provider of care shouldprovide summary care record for each transition of care or referral. Pending sale to [facility] Allergies Active Allergy Reactions Criticality Noted Date Comments Codeine 08/09/2018 abd pain Medications Medication Sig Dispensed Refills Start Date End Date Status amLODIPine (NORVASC) 5 MG tablet Take 5 mg by mouth daily. 3 06/24/2018 Active celecoxib (CELEBREX) 200 MG capsule Take 200 mg by mouth two times a day. 3 07/21/2018 Active clobetasol (TEMOVATE) 0.05 % external solution 0.05 Drops. 2 08/04/2018 Active glipiZIDE (GLUCOTROL) 5 MG tablet Take 5 mg by mouth two times a day. 2 05/26/2018 Active metFORMIN (GLUCOPHAGE) 1000 MG tablet Take 1,000 mg by mouth two times a day. 3 07/11/2018 Active montelukast (SINGULAIR) 10 MG tablet Take 10 mg by mouth daily. 3 05/04/2018 Active mupirocin (BACTROBAN) 2 % ointment 2 08/04/2018 Active pravastatin (PRAVACHOL) 10 MG tablet Take 10 mg by mouth daily at bedtime. 0 05/13/2018 Active spironolactone (ALDACTONE) 25 MG tablet Take 25 mg by mouth daily. 2 06/24/2018 Active venlafaxine 150 MG 24 hour release tablet Take 150 mg by mouth daily. 3 06/23/2018 Active losartan (COZAAR) 25 MG tablet Take 25 mg by mouth daily. 0 Active estradiol (ESTRACE) 0.1 MG/GM vaginal cream Place a dime size amount on your finger and place in vagina daily 42.5 g 3 03/18/2020 Active desmopressin (DDAVP) 0.1 MG tablet Take 1 Tablet (0.1 mg) by mouth daily. 90 Tablet 3 09/01/2021 Active oxybutynin (DITROPANXL) 10 MG 24 hour release tablet Take 1 Tablet (10 mg) by mouth daily. 90 Tablet 3 12/01/2021 Active Social History Tobacco Use Types Packs/Day Years Used Date Smoking Tobacco: Never Smokeless Tobacco: Never Sex and Gender Information Value Date Recorded Sex Assigned at Not on file Gender Identity Not on file Sexual Orientation Not on file Last Filed Vital Signs Vital Sign Reading Time Taken Comments Blood Pressure 130/72 09/20/2018 9:37 AM CDT Pulse 100 08/09/2018 8:29 AM CDT Temperature - - Respiratory Rate 16 08/09/2018 8:29 AM CDT Oxygen Saturation - - Inhaled Oxygen Concentration - - Weight - - Height - - Body Mass Index - - Plan of Treatment Health Maintenance Due Date Last Done Comments Colon Cancer Screening Plan Due 1950 Hep C Screening (Preventive Services) 1950 Medicare Annual Wellness Visit 1950 Mammogram 1950 COVID-19 Vaccine (#1) [birth year]13/1951 Cholesterol 11/13/1995 Dexa 11/13/2015 Influenza (#1) 2022 11/28/2020, 10/13, 11/21/2018, Additional history exists DTaP/Tdap/Td (4 - Tdap) 03/25/2027 03/25/19 18, 01/20/2012, 11/15/2007 Zoster/Shingles Completed 02/22/2018, 11/14, 05/05/2011 Pneumococcal 65+ Yrs Completed 10/30/2019, 03/20/2016, 10/15/2010 HepA Aged Out No longer eligi ble based on patient's age to complete this topic HepB Aged Out No longer eligi ble based on patient's age to complete this topic Hib Aged Out No longer eligi ble based on patient's age to complete this topic IPV (Polio) Aged Out No longer eligi ble based on patient's age to complete this topic MCV4 Aged Out No longer eligi ble based on patient's age to complete this topic Care Teams Staff Sonographer Relationship Specialty Start Date End Date Flor Solorzano MD [address] [place] [address] PCP - General Internal Medicine 08/09/18
--- NOTE | 2023-03-24 14:40 | CRLHL7_ITS ---
For Patients: As a result of the Century Cures Act, medical imaging exams and procedure reports are released immediately into your electronic medical record. You may view this report before your referring provider. If you have questions, please contact your health care provider. BILATERAL SCREENING MAMMOGRAM WITH COMPUTER-AIDED DETECTION TECHNIQUE: CC and MLO views were obtained. These mammographic images have been obtained using full-field digital technique. These mammographic images were interpreted with the benefit of computer-aided detection. COMPARISON FILM: 03/24/22, 03/19/22, 03/11/22. FINDINGS: There are scattered areas of fibroglandular density IMPRESSION: There is no radiographic evidence for malignancy. ASSESSMENT: BI-RADS Category 2: Benign RECOMMENDATION: Routine screening mammogram in 1 year. A lay language report of this examination will be provided to the patient. Elian Zimmer M.D. Diagnostic Radiologist [email or web address] Transcribed: 5:03 [email or web address] mccain/Dictated by: Elian Zimmer MD @ 03/31/2023 9:54:00 AM (Electronically Signed)
== END 2023-03-24 14:28 | disposition home or self-care (01) ==
LOC: MAMMO 14:29
PROVIDERS: PCP Internal Medicine; Visit Provider Internal Medicine
DX: Z12.31 Encounter for screening mammogram for malignant neoplasm of breast (principal)
CPT/HCPCS: 77067

== ENCOUNTER 2023-03-29 07:55 | Outpatient (CLI) | payer MEDICARE, BC, SELFPAY ==
--- OUTSIDE RECORDS SUMMARY | 2023-04-02 11:40 | XMS_ITS | Clinical Summary ---
Author Name Unknown Organization [facility] Address [address] [place] [address] Care Team Providers Care Sailing Instructor Name Role Phone Flor Solorzano MD Primary Care Provider [phone]- [phone] Source Comments You are receiving this document as you are listed as the primary care provider,follow-up provider, or the patient has been referred to you for consultation.This is in compliance with the Medicare and[facility] Administrationcaid EHR Incentive Program,which states Providers who transition their patient to another setting of careor provider of care or refers their patient to another provider of care shouldprovide summary care record for each transition of care or referral. [facility] Allergies Active Allergy Reactions Criticality Noted Date [...] age to complete this topic Care Teams Sailing Instructor Relationship Specialty Start Date End Date Flor Solorzano MD [address] [place] [address] PCP - General Internal Medicine 08/09/18
== END 2023-03-29 07:56 | disposition home or self-care (01) ==
PROVIDERS: PCP Internal Medicine; Referring Provider Internal Medicine; Visit Provider Internal Medicine
DX: E11.29 Type 2 diabetes mellitus with other diabetic kidney complication (principal); R80.9 Proteinuria, unspecified; E78.5 Hyperlipidemia, unspecified; Z79.84 Long term (current) use of oral hypoglycemic drugs
CPT/HCPCS: 80053; 80061; 82043; 82570

== ENCOUNTER 2024-02-14 11:24 | Outpatient (CLI) | payer BC, MEDICARE, SELFPAY | END 2024-02-14 11:25 | disposition home or self-care (01) | PROVIDERS: PCP Internal Medicine; Visit Provider Internal Medicine | DX: E11.29 Type 2 diabetes mellitus with other diabetic kidney complication (principal); I10 Essential (primary) hypertension; R80.9 Proteinuria, unspecified; E78.5 Hyperlipidemia, unspecified | CPT/HCPCS: 80053; 80061; 82043; 82570 ==

== ENCOUNTER 2024-03-27 13:47 | Outpatient (CLI) | payer MEDICARE, BC, SELFPAY ==
--- NOTE | 2024-03-27 14:00 | CRLHL7_ITS ---
For Patients: As a result of the Century Cures Act, medical imaging exams and procedure reports are released immediately into your electronic medical record. You may view this report before your referring provider. If you have questions, please contact your health care provider. BILATERAL SCREENING MAMMOGRAM WITH COMPUTER-AIDED DETECTION AND TOMOSYNTHESIS TECHNIQUE: CC and MLO views were obtained. These mammographic images have been obtained using full-field digital technique. These mammographic images were interpreted with the benefit of computer-aided detection. Breast Tomosynthesis was used in this interpretation. COMPARISON FILM: 03/24/23, 03/11/22, 03/11/21. FINDINGS: The breasts are heterogeneously dense, which may obscure small masses. IMPRESSION: There is no radiographic evidence for malignancy. ASSESSMENT: BI-RADS Category 2: Benign RECOMMENDATION: Routine screening mammogram in 1 year. A lay language report of this examination will be provided to the patient. Elian Zimmer M.D. Diagnostic Radiologist [email or web address] SP/Dictated by: Elian Zimmer MD @ 03/28/2024 9:16:00 AM (Electronically Signed)
== END 2024-03-27 13:48 | disposition home or self-care (01) ==
LOC: MAMMO 13:47
PROVIDERS: PCP Internal Medicine; Visit Provider Internal Medicine
DX: Z12.31 Encounter for screening mammogram for malignant neoplasm of breast (principal); R92.333 Mammographic heterogeneous density, bilateral breasts
CPT/HCPCS: 77063; 77067

== ENCOUNTER 2025-02-12 09:30 | Outpatient (CLI) | payer MEDICARE, BC, SELFPAY | END 2025-02-12 09:31 | disposition home or self-care (01) | LOC: NFLDREF 02-16 06:38 | PROVIDERS: PCP Internal Medicine; Referring Provider Internal Medicine; Visit Provider Internal Medicine | DX: E11.3599 Type 2 diabetes mellitus with proliferative diabetic retinopathy without macular edema, unspecified eye (principal) | CPT/HCPCS: 80053; 80061; 82043; 82570 ==